=== PATIENT | female | born 1945 | race Caucasian/White ===

== ENCOUNTER 2017-03-31 05:31 | Day surgery (SDC) | payer OTHER ==
[~2017-03-31] VITALS: Ht 152.4 cm; Wt 63.0 kg
[~2017-03-31 05:31] MED LIST: ACCOLATE20 MG PO; ACID REDUCER20 MG PO; ASPERCREME 1035.4 GM TP; BUSPIRONE HCL10 MG PO; Buspar PO; CELEXA20 MG PO; FAMOTIDINE20 MG PO; GABAPENTIN300 MG PO; GRALISE300 MG PO; LAMICTAL PO; LAMICTAL25 MG PO; LAMOTRIGINE25 MG PO; LEVAQUIN750 MG PO; LEXAPRO10 MG PO; LIDODERM 5% P1 PATCH TD; LYRICA75 MG PO; LaMICtal PO; Levaquin PO; MOBIC7.5 MG PO; MS CONTIN,ORAMO15 M1 PO; MS CONTIN,ORAMO30 MG PO; MS Contin,Oramorph S PO; Mobic PO; NEO-SYNEPHRINE15 M4 BOTH NARES; Neurontin PO; PERCOCET 5-3251 EACH PO; PROAIR HFA8.5 GM IH; PROBIOTIC1 EAC1 PO; SIMVASTATIN20 M1 PO; TOPAMAX PO; TRAMADOL HCL50 MG PO; TRIAZOLAM0.25 MG PO; TYLENOL REGULA325 MG PO; VITAMIN B-1250 MC3 PO; VITAMIN D32000 UNI1 PO; ZOCOR20 MG PO; ZYRTEC10 M2 PO; ZyrTEC PO; celeXA PO
[2017-03-31 06:23] VITALS: BP 132/70
[2017-03-31] MEDS ORDERED: DILAUDID2 MG PO (11:55)
[2017-03-31 13:45] VITALS: BP 138/65
[2017-03-31 14:21] VITALS: BP 110/53
== END 2017-03-31 14:20 | disposition home or self-care (01) ==
LOC: SDC 05:31 → NUC 07:00 → SDC 07:00
DX: C50.411 Malignant neoplasm of upper-outer quadrant of right female breast (principal); C77.3 Secondary and unspecified malignant neoplasm of axilla and upper limb lymph nodes; Z17.0 Estrogen receptor positive status [ER+]; F41.8 Other specified anxiety disorders; E78.00 Pure hypercholesterolemia, unspecified; Z87.891 Personal history of nicotine dependence; J45.909 Unspecified asthma, uncomplicated
CPT/HCPCS: 78195; 78999; 88305; 88307; A9541; J0690; J1100; J1170; J2250; J2405; J3010; S0020

== ENCOUNTER 2017-08-01 15:13 | Emergency (ER) | payer OTHER ==
[~2017-08-01] VITALS: Ht 152.4 cm; Wt 59.9 kg
[~2017-08-01 15:13] MED LIST changes: +DILAUDID2 MG PO
[2017-08-01] MEDS ORDERED: NAPROXEN500 MG PO (18:13)
[2017-08-01 19:05] VITALS: BP 121/60
== END 2017-08-01 19:05 | disposition home or self-care (01) ==
LOC: EME 15:13
DX: M25.472 Effusion, left ankle (principal); I10 Essential (primary) hypertension; E78.5 Hyperlipidemia, unspecified; Z87.891 Personal history of nicotine dependence; Z88.1 Allergy status to other antibiotic agents
CPT/HCPCS: 73610; 93971; 99281; 99284